=== PATIENT | male | born 1955 | race Caucasian/White ===

== ENCOUNTER → 2016-11-03 | Outpatient (REF) ==
[2016-11-03 19:06] LABS: THYROID STIMULATING HORMONE 1.65 uIU/mL (0.465-4.680)
[2016-11-03 20:52] LABS: PSA-TOTAL 1.89 ng/mL (0-4)
== END ==
LOC: ZLAB.WCH 18:16
PROVIDERS: Internal Medicine
DX: Z01.89 Encounter for other specified special examinations (principal)
CPT/HCPCS: G0103

== ENCOUNTER → 2017-12-08 | Outpatient (REF) ==
[2017-12-08 09:31] LABS: PSA-TOTAL 2.24 ng/mL (0-4)
[2017-12-08 09:36] LABS: THYROID STIMULATING HORMONE 2.41 uIU/mL (0.465-4.680)
== END ==
LOC: ZLAB.WCH 08:44
PROVIDERS: Internal Medicine
DX: Z01.89 Encounter for other specified special examinations (principal)
CPT/HCPCS: G0103